=== PATIENT | male | born 2000 | race Caucasian/White ===

== ENCOUNTER 2022-06-20 15:26 | Emergency (ER) | payer OTHER ==
[~2022-06-20] VITALS: Ht 188 cm; Wt 105.5 kg
[2022-06-20] MEDS ORDERED: NS 1,000 ML IV ONE (16:20)
[2022-06-20] MEDS ORDERED: ONDANSETRON 4MG 2ML VIAL IV ONE (16:20)
[2022-06-20] MEDS ORDERED: KETOROLAC 30 MG/ML 1ML VIAL IV ONE (16:20)
[2022-06-20 16:49] LABS: BASO % 0.3 % (0.0-1.0); EOS # 0.1 10^3/uL (0.0-0.5); EOS % 0.8 % (0.0-3.0); HEMATOCRIT 47.2 % (42.0-52.0); HEMOGLOBIN 16.1 g/dl (13.5-17.5); LYMPH # 2.4 10^3/uL (1.5-5.0); LYMPH % 17.4 % (24.0-44.0); MEAN CORPUSCULAR HEMOGLOBIN 29.2 pg (27.0-33.0); MEAN CORPUSCULAR HGB CONC 34.1 g/dl (32.0-36.5); MEAN CORPUSCULAR VOLUME 85.5 fl (80.0-96.0); MONO # 0.8 10^3/uL (0.0-0.8); MONO % 6.2 % (2.0-8.0); NEUTROPHILS # 10.2 10^3/uL (1.5-8.5); PLATELET COUNT, AUTOMATED 233 10^3/uL (150-450); RED BLOOD COUNT 5.52 10^6/uL (4.30-6.10); WHITE BLOOD COUNT 13.5 10^3/uL (4.0-10.0)
[2022-06-20 17:16] LABS: ALBUMIN 4.1 GM/DL (3.2-5.2); BILIRUBIN,DIRECT 0.4 MG/DL (0.0-0.2); BILIRUBIN,TOTAL 1.9 MG/DL (0.2-1.0); TOTAL PROTEIN 7.7 GM/DL (6.4-8.2)
[2022-06-20 17:38] VITALS: BP 118/73
[2022-06-20] MEDS ORDERED: FLOM0.4C39 PO (18:03)
[2022-06-20] MEDS ORDERED: HYDR-3713 PO (18:03)
[2022-06-20] MEDS ORDERED: ONDA4TAB6 PO (18:03)
== END 2022-06-20 20:18 | disposition home or self-care (01) ==
LOC: M ED 15:26
DX: N13.30 Unspecified hydronephrosis (principal); N20.1 Calculus of ureter

== ENCOUNTER → 2022-11-13 | Outpatient (CLI) | payer OTHER ==
[~2022-11-13] MED LIST: FLOM0.4C39 PO; HYDR-3713 PO; ONDA4TAB6 PO
== END ==
LOC: M PLAIMG 09:58
PROVIDERS: ATTEND Physician Assistant
DX: M79.672 Pain in left foot (principal); M79.671 Pain in right foot; M93.272 Osteochondritis dissecans, left ankle and joints of left foot